=== PATIENT | female | born 1995 | race Caucasian/White ===

== ENCOUNTER 2020-05-01 04:02 | Inpatient (IN) | payer MEDICAID ==
[~2020-05-01] VITALS: Ht 152.4 cm; Wt 74.4 kg
[2020-05-01] MEDS ORDERED: PREN1TAB78 PO (05:06)
[2020-05-01] MEDS ORDERED: LIDOCAINE HCL 1% 20ML VIAL (Pyxis) INJ INFIL SCH ×2 (07:15→21:30)
[2020-05-01] MEDS ORDERED: NALOXONE HCL 0.4 MG/ML 1ML VIAL IM PRN (07:15)
[2020-05-01] MEDS ORDERED: METHYLERGONOVINE MALEATE 0.2 MG/ML IM PRN ×2 (07:15→21:45)
[2020-05-01] MEDS ORDERED: CARBOPROST TROMETHAMINE 250 MCG/ML AMPUL IM PRN (07:15)
[2020-05-01] MEDS ORDERED: DEXT 5%/LR + PITOCIN 20UNITS/L 1,000 ML IV SCH ×2 (07:22→21:31)
[2020-05-01] MEDS ORDERED: AMPICILLIN 2,000 MG in SODIUM CHLORIDE 0.9% 100 ML IV SCH (08:00)
[2020-05-01] MEDS: LACTATED RINGERS 1,000 ML IV SCH ×2 (08:00→15:04)
[2020-05-01 08:30] LABS: BASOPHILS % 0.5 % (0.0-2.0); CLARITY URINE CLEAR (CLEAR); COLOR URINE YELLOW (YELLOW); EOSINOPHILS % 0.3 % (0.0-5.0); HEMOGLOBIN. 11.5 g/dL (12.0-16.0); KETONES URINE NEGATIVE (NEGATIVE); LEUKOCYTE ESTERASE URINE NEGATIVE (NEGATIVE); LYMPHOCYTES % 15.8 % (20.0-50.0); MEAN CORPUSCULAR HEMOGLOBIN 26.6 pg (28.0-32.0); MEAN PLATELET VOLUME 10.1 fl (7.4-10.4); MONOCYTES % 5.5 % (2.0-8.0); NEUTROPHILS % 77.9 % (40.0-76.0); NITRITE URINE NEGATIVE (NEGATIVE); OCCULT BLOOD URINE NEGATIVE (NEGATIVE); PLATELET 231 x1000/uL (130-400); PROTEIN URINE 2+ (NEGATIVE); RED BLOOD CELL COUNT 4.32 mill/uL (4.2-5.4); RED CELL DISTRIBUTION WIDTH 15.4 % (11.6-14.6); SPECIFIC GRAVITY URINE 1.018 (1.005-1.030); UROBILINOGEN URINE 0.2 E.U./dL (0.2-1.0)
[2020-05-01 08:43] LABS: INR 0.9; PARTIAL THROMBOPLASTIN TIME 26.7 sec (23.4-31.0); PROTHROMBIN TIME 9.5 sec (9.6-11.0)
[2020-05-01 08:59] LABS: *AMPHETAMINES SCREEN URINE NEGATIVE (NEGATIVE); CANNABINOID URINE SCREEN NEGATIVE (NEGATIVE); METHADONE URINE SCREEN NEGATIVE (NEGATIVE); OPIATES URINE SCREEN NEGATIVE (NEGATIVE); PHENCYCLIDINE URINE SCREEN NEGATIVE (NEGATIVE)
[2020-05-01 09:00] LABS: *BARBITURATES SCREEN URINE NEGATIVE (NEGATIVE); *BENZODIAZEPINES SCREEN URINE NEGATIVE (NEGATIVE); *COCAINE SCREEN URINE NEGATIVE (NEGATIVE)
[2020-05-01] MEDS ORDERED: MISOPROSTOL 200MCG TABLET ONE (12:00)
[2020-05-01 13:38] LABS: HEPATITIS B SURFACE ANTIGEN NEGATIVE
[2020-05-01] MEDS: BUTORPHANOL TARTRATE 2 MG/ML VIAL IV PRN ×2 (15:02→19:59)
[2020-05-01] MEDS: AMPICILLIN 1,000 MG in SODIUM CHLORIDE 0.9% 50 ML IV SCH ×2 (16:01→23:16)
[2020-05-01] MEDS ORDERED: BISACODYL 10MG SUPP PR PRN (21:45)
[2020-05-01] MEDS ORDERED: HEMORRHOIDAL SUPP PR PRN (21:45)
[2020-05-01] MEDS ORDERED: ACETAMINOPHEN 500MG TABLET PO PRN (21:45)
[2020-05-01] MEDS ORDERED: LANOLIN OINT 7GM TUBE TOP PRN (21:45)
[2020-05-01] MEDS ORDERED: DIPHENHYDRAMINE 25MG CAPSULE PO PRN (21:45)
[2020-05-01] MEDS ORDERED: BENZOCAINE/LANOLIN/ALOE VERA SPRAY TOP PRN (21:45)
[2020-05-01] MEDS ORDERED: IBUPROFEN 400MG TABLET PO PRN (21:45)
[2020-05-01] MEDS ORDERED: ACETAMINOPHEN WITH CODEINE 300/30MG TABLET PO PRN (21:45)
[2020-05-01] MEDS ORDERED: GLYCERIN/WITCH HAZEL LEAF MEDICATED PAD TOP PRN (21:45)
[2020-05-01 23:10] VITALS: BP 100/59
[2020-05-01 23:45] VITALS: BP 102/58
[2020-05-02 04:00] VITALS: BP 107/53
[2020-05-02 07:31] LABS: BASOPHILS % 0.3 % (0.0-2.0); EOSINOPHILS % 0.3 % (0.0-5.0); HEMATOCRIT. 27.7 % (36.0-48.0); HEMOGLOBIN. 9.1 g/dL (12.0-16.0); LYMPHOCYTES % 16.5 % (20.0-50.0); MEAN CORPUSCULAR HEMOGLOBIN 26.7 pg (28.0-32.0); MEAN CORPUSCULAR VOLUME 81.2 fL (81.0-99.0); MEAN PLATELET VOLUME 9.9 fl (7.4-10.4); MONOCYTES % 7.4 % (2.0-8.0); NEUTROPHILS % 75.5 % (40.0-76.0); PLATELET 179 x1000/uL (130-400); RED BLOOD CELL COUNT 3.42 mill/uL (4.2-5.4); RED CELL DISTRIBUTION WIDTH 15.4 % (11.6-14.6)
[2020-05-02 08:00] VITALS: BP 93/50
[2020-05-02] MEDS: PRENATAL VIT/FE FUMARATE/FA TABLET PO SCH (08:19)
[2020-05-02] MEDS: FERROUS SULFATE 325MG TABLET PO SCH ×3 (08:19→17:55)
[2020-05-02] MEDS: SIMETHICONE 80MG TABLET CHEW PO SCH ×3 (08:19→17:56)
[2020-05-02] MEDS: IBUPROFEN 800MG TABLET PO PRN ×2 (11:03→20:00)
[2020-05-02 20:00] VITALS: BP 100/54
[2020-05-02] MEDS ORDERED: DOCUSATE SODIUM 100MG CAPSULE PO SCH (21:00)
[2020-05-03] VITALS: BP 99/66
[2020-05-03] MEDS: IBUPROFEN 800MG TABLET PO PRN ×2 (02:30→08:52)
[2020-05-03 07:30] VITALS: BP 91/52
[2020-05-03] MEDS: PRENATAL VIT/FE FUMARATE/FA TABLET PO SCH (08:52)
[2020-05-03] MEDS: FERROUS SULFATE 325MG TABLET PO SCH (08:52)
[2020-05-03 14:00] VITALS: BP 100/58
== END 2020-05-03 14:40 | disposition home or self-care (01) | DRG 560 ==
LOC: 8 EST LDRP 04:02 → OBSVTOIN 04:02 → 8EST 23:04
PROVIDERS: ADMIT Obstetrics & Gynecology; ATTEND Obstetrics & Gynecology
PROC: 10E0XZZ Delivery of Products of Conception, External Approach (ICD-10-PCS; principal; 2020-05-01)
PROC: 0KQM0ZZ Repair Perineum Muscle, Open Approach (ICD-10-PCS; 2020-05-01)
DX: O42.92 Full-term premature rupture of membranes, unspecified as to length of time between rupture and onset of labor (principal); O70.1 Second degree perineal laceration during delivery; O77.0 Labor and delivery complicated by meconium in amniotic fluid; Z37.0 Single live birth; Z3A.40 40 weeks gestation of pregnancy; Z79.899 Other long term (current) drug therapy
CPT/HCPCS: 36415; 76805; 76818; 80305; 81003; 85025; 86592; 86703; 86762; 86850; 86900; 87340; 99281; J0290; J0595; J2590; J3490; J7050; J7120